=== PATIENT | male | born 1965 | race Caucasian/White ===

== ENCOUNTER 2023-03-05 10:56 | Outpatient (CLI) | payer OTHER, SELFPAY | END 2023-03-05 10:57 | disposition home or self-care (01) | PROVIDERS: Visit Provider Nurse Practitioner Family | DX: Z00.00 Encounter for general adult medical examination without abnormal findings (principal); I10 Essential (primary) hypertension; E78.5 Hyperlipidemia, unspecified; M79.605 Pain in left leg; C61 Malignant neoplasm of prostate | CPT/HCPCS: 80053; 80061; 83735; 84153 ==

== ENCOUNTER 2024-03-17 10:55 | Outpatient (CLI) | payer OTHER, SELFPAY | END 2024-03-17 10:56 | disposition home or self-care (01) | PROVIDERS: PCP Nurse Practitioner Family; Visit Provider Nurse Practitioner Family | DX: Z00.00 Encounter for general adult medical examination without abnormal findings (principal); I10 Essential (primary) hypertension; E78.5 Hyperlipidemia, unspecified; Z13.0 Encounter for screening for diseases of the blood and blood-forming organs and certain disorders involving the immune mechanism; Z12.5 Encounter for screening for malignant neoplasm of prostate | CPT/HCPCS: 80053; 80061; 85025; G0103 ==

== ENCOUNTER 2024-07-17 12:40 | Outpatient (CLI) | payer OTHER, SELFPAY | END 2024-07-17 12:41 | disposition home or self-care (01) | PROVIDERS: PCP Nurse Practitioner Family; Visit Provider Nurse Practitioner Family | DX: M79.604 Pain in right leg (principal); R20.0 Anesthesia of skin | CPT/HCPCS: 93922 ==